=== PATIENT | female | born 1970 | race Caucasian/White ===

== ENCOUNTER 2017-04-11 13:00 | Observation (INO) ==
[~2017-04-11 13:00] MED LIST: Adenosine 90 MG/30 ML MLS IV ONE
[2017-04-11 13:28] LABS: Basophils # 0.1 K/mcL (0.0-0.2); Basophils % 0.7 %; Eosinophils # 0.2 K/mcL (0.0-0.6); Eosinophils % 2.9 %; Hematocrit 44.5 % (35.3-44.9); Hemoglobin 14.4 g/dL (11.5-15.4); Immature Granulocytes % 0.7 % (0-4); Lymphocytes # 2.1 K/mcL (0.6-4.6); Lymphocytes % 26.9 %; Mean Corpuscular HGB Conc 32.4 g/dL (31.6-35.5); Mean Corpuscular Hemoglobin 29.8 pg (28.0-33.3); Mean Corpuscular Volume 91.9 fL (83.0-100.0); Mean Platelet Volume 10.7 fL (9.4-12.4); Monocytes # 0.4 K/mcL (0.0-1.3); Monocytes % 5.4 %; Neutrophils # 4.9 K/mcL (1.6-8.9); Platelet Count 206 K/mcL (140-400); Red Blood Count 4.84 M/mcL (3.82-4.97); Red Cell Distribution Width 12.8 % (11.5-14.5); Segmented Neutrophils % 63.4 %
[2017-04-11 13:52] LABS: BUN/Creatinine Ratio 17 (6-26); Blood Urea Nitrogen 13 mg/dL (6-20); Calcium 9.3 mg/dL (8.6-10.3); Carbon Dioxide 27 mEq/L (23-29); Chloride 105 mEq/L (98-107); Glucose 255 mg/dL (70-105); Osmolality,Calculated 293 (280-300); Potassium 4.1 mEq/L (3.5-5.1); Sodium 137 mEq/L (136-145); eGFR For African Americans > 60 (> 60); eGFR For Non-African Americans > 60 (> 60)
[2017-04-11] MEDS ORDERED: Aspirin 81 MG TAB.CHEW PO STA (14:20)
[2017-04-11] MEDS ORDERED: Nitroglycerin 0.4 MG TAB.SUBL SL PRN ×2 (14:20→15:33)
--- NOTE | 2017-04-11 14:31 | Emergency Department Note ---
Disposition Clinical Impression: ACS (acute coronary syndrome), Acute electrocardiogram changes Disposition: Admitted As Inpatient Condition: Fair Referrals: Clint Price DO [Primary Care Provider] - Forms: ED Satisfaction Letter Time of Disposition: 14:33 General Adult HPI - General Chief complaint: ED Chest Pain Stated complaint: CHEST PAIN Time Seen by Provider: 04/11/17 14:11 Source: patient Nursing Notes Reviewed: Yes Vital Signs Reviewed: Yes - History of Present Illness HPI Narrative: History of present illness: -year-old female history of coronary artery bypass graft surgery 3 years ago presents with chest pain pressure mid mid and substernal waiting to her neck and left upper extremity with dyspnea on exertion some nausea and occasional diaphoresis. She has had no recent cardiac workups. No recent medication changes. She does smoke. Patient is here for further evaluation Pain Scale: 4 - Related Data Allergies Allergy/AdvReac Type Severity Reaction Status Date / Time No Known Allergies Allergy Verified 04/11/17 13:06 All systems ED: reviewed and negative except as stated. Cardiovascular: Reports: chest pain, dyspnea on exertion Respiratory: Reports: dyspnea Past Medical History - Past Medical History Attestation: Yes The following information was validated with the patient. Source: patient Medical history: Reports: coronary artery disease, hyperlipidemia, hypertension Psychiatric history: Reports: no psych history - Social History Smoking Status: Former smoker Alcohol use: Reports: none Drug use: Reports: none Physical Exam - General Limitations: no limitations General appearance: alert, in no apparent distress - Head Head exam: atraumatic, normocephalic - Eye Eye exam: Present: normal appearance, PERRL - ENT ENT exam: normal exam, normal oropharynx - Neck Neck exam: Present: normal inspection, full ROM - Chest Chest inspection: Present: normal inspection, symmetric chest wall rise - Respiratory Respiratory exam: Present: normal lung sounds bilaterally - Cardiovascular Cardiovascular exam: Present: regular rate, normal rhythm - Abdominal Exam Abdominal exam: Present: soft, Non-Tender - Extremities Exam Extremities exam: Present: normal inspection, full ROM - Expanded Lower Extremity Exam Neurovascular/Tendon exam: Present: normal capillary refill Gait: observed and normal - Back Exam Back exam: Present: normal inspection, full ROM - Neurological Exam Neurological exam: Present: alert, oriented X3 - Psychiatric Psychiatric exam: Present: normal mood - Skin Skin exam: Present: warm, dry, intact Course - Reevaluation(s) Reevaluation #1: Patient workup is complete. Initiated at triage. All labs including troponin negative were baseline. Chest x-ray read by radiology process. Patient's 12- lead EKG shows new flipped T waves in V1 through V6 consistent with possible ischemia. Patient's pain is rated at 2 out of 10. Patient was ordered aspirin and nitroglycerin trial. Discussed the case with the hospitalist Dr. Weldon, patient accepted for admission in stable condition. Provided 35 minutes of critical care services for this patient Time: 14:30 Vital Signs Temperature 97.9 F 04/11/17 13:03 Pulse Rate 60 04/11/17 13:03 Respiratory Rate 14 04/11/17 13:03 Blood Pressure 153/84 04/11/17 13:03 O2 Sat by Pulse Oximetry 98 04/11/17 13:03 Temperature 97.9 F 04/11/17 13:03 Pulse Rate 60 04/11/17 13:03 Respiratory Rate 14 04/11/17 13:03 Blood Pressure 153/84 04/11/17 13:03 O2 Sat by Pulse Oximetry 98 04/11/17 13:03 Oxygen Delivery Oxygen Delivery Room Air Medical Decision Making - Medical Records Medical records reviewed: Yes I reviewed the patient's medical records. - Lab Data Lab results reviewed: Yes I reviewed the patient's lab results. Result diagrams: 04/11/17 13:19 04/11/17 13:19 Lab Results 04/11/17 04/11/17 04/11/17 Range/Units 13:19 13:19 13:19 WBC 7.7 (4.3-11.1) K/mcL RBC 4.84 (3.82-4.97) M/mcL Hgb 14.4 (11.5-15.4) g/dL Hct 44.5 (35.3-44.9) % MCV 91.9 (83.0-100.0) fL MCH 29.8 (28.0-33.3) pg MCHC 32.4 (31.6-35.5) g/dL RDW 12.8 (11.5-14.5) % Plt Count 206 (140-400) K/mcL MPV 10.7 (9.4-12.4) fL Immature Gran % 0.7 (0-4) % Seg Neutrophils % 63.4 % Lymphocytes % 26.9 % Monocytes % 5.4 % Eosinophils % 2.9 % Basophils % 0.7 % Neutrophils # 4.9 (1.6-8.9) K/mcL Lymphocytes # 2.1 (0.6-4.6) K/mcL Monocytes # 0.4 (0.0-1.3) K/mcL Eosinophils # 0.2 (0.0-0.6) K/mcL Basophils # 0.1 (0.0-0.2) K/mcL Sodium 137 (136-145) mEq/L Potassium 4.1 (3.5-5.1) mEq/L Chloride 105 (98-107) mEq/L Carbon Dioxide 27 (23-29) mEq/L BUN 13 (6-20) mg/dL Creatinine 0.77 (0.60-1.20) mg/dL Est GFR ( Amer) > 60 (> 60) Est GFR (Non-Af Amer) > 60 (> 60) BUN/Creatinine Ratio 17 (6-26) Glucose 255 H (70-105) mg/dL Calculated Osmolality 293 (280-300) Calcium 9.3 (8.6-10.3) mg/dL Troponin I < 0.03 (< 0.04) ng/mL - Radiology Data Radiology results reviewed: Yes I reviewed the patient's radiology results. - EKG Data EKG #1 EKG attestation: Yes I reviewed and interpreted this EKG. EKG results narrative: Twelve-lead EKG interpreted without Cardiologic assistance shows the following: Sinus bradycardia at 58 bpm, normal NC, QRS, QT corrected. Symmetrically inverted T waves from V1 to V6. These are new changes when compared to prior EKG dated 03/23/2014.
[2017-04-11] MEDS ORDERED: Naloxone 0.4 MG/ML INJ IVP PRN (15:40)
[2017-04-11] MEDS ORDERED: *HR* Heparin 5,000 UNIT/ML VIAL IVP ONE (15:48)
[2017-04-11] MEDS ORDERED: *HR* Heparin 5,000 UNIT/ML VIAL IVP PRN ×2 (15:48)
--- NOTE | 2017-04-11 15:57 | Internal Med History&Physical ---
Date of Encounter: 04/11/17 Time of Encounter: 15:54 Assessment and Plan (1) ACS (acute coronary syndrome) Current visit: Yes Status: Acute ASSESSMENT: - Chest pain due to ACS. Multiple risk factors including HLD HTN and prior CABG. She has had a previous atypical chest pain presentation and subsequent workup found to be negative. However, she continued to have the same symptoms she is reporting now and went for further [place] for further evaluation where an LHC found CAD requiring a CABG PLAN: - cardiac enzymes x 2 q 6 hr - EKG now - ASA - Metoprolol 12.5 mg PO BID - O2 by NC to keep SpO2 greater than 92% - CBCD, BMP in AM - Fasting lipids - Resume Home meds - Heparin 5000 U SQ BID - 2D Echo - Cardiology consult-spoken with Dr. Robertson who is recommended placing patient on a nitroglycerin and heparin drip. He has agreed to see the patient and is planning for a LHC in the morning -Nothing by mouth after midnight (2) HLD (hyperlipidemia) Current visit: Yes Status: Acute Resume atorvastatin, due to frustration and prior history increased dose of atorvastatin to 80 mg given first dose now Qualifiers: Hyperlipidemia type: unspecified Qualified Code(s): E78.5 - Hyperlipidemia , unspecified (3) HTN (hypertension) Current visit: Yes Status: Acute Stable, resume antihypertensives Qualifiers: Hypertension type: essential hypertension Qualified Code(s): I10 - Essential (primary) hypertension (4) Acute electrocardiogram changes Current visit: Yes Status: Acute (5) DVT prophylaxis Current visit: Yes Status: Acute Heparin drip for ACS Internal Medicine - H&P: HPI Chief complaint: chest pain Admitted From: Home Plans for Post Hospital Care: Home History of present illness: Ms. Batista is a 46 year old female with a PMH of CAD, initially, HTN and CABG. She presents today for multiple days of chest pain/pressure as well as intense 8 that is midsternal with radiation to the left shoulder and left arm. Additionally she reports intermittent exertional dyspnea as well as diaphoresis and nausea accompanying the chest pain. She denies any fever, chills, URI symptoms, abdominal pain, weight gain, peripheral edema or extremity pain. She has a history of prior atypical chest pain presentation which had a subsequent negative workup that ultimately resulted in a CABG approximately [address] [facility]. She describes that her current presentation is similar to the presentation when she ended up requiring a CABG. No elevation noted in initial cardiac biomarkers over, she has new T-wave inversions on her EKG in comparison to prior EKG. Past Med Surg Social Fam HX - Past Medical History Medical history: coronary artery disease, hyperlipidemia Psychiatric history: no psych history - Past Surgical History Surgical History: coronary bypass (CABG) - Social History Smoking Status: Former smoker Alcohol use: none Drug use: none - Additional Family History Additional family history: Noncontributory Internal Medicine - H&P: Meds Aspirin [Lo-Dose Aspirin EC] 81 mg PO DAILY 04/11/17 [History] Atorvastatin [Lipitor] 10 mg PO HS 04/11/17 [History] Metoprolol [Lopressor] 12.5 mg PO BID 04/11/17 [History] Nitroglycerin [Nitrostat] 0.4 mg SL Q5M PRN 04/11/17 [History] 3 Allergy/AdvReac Type Severity Reaction Status Date / Time No Known Allergies Allergy Verified 04/11/17 13:06 All Systems PM: A 10-system review of systems was performed and is negative for pertinent findings except as documented above in the HPI. - Constitutional Constitutional: no chills, no fever(s), no night sweats - EENT Eyes: no change in vision, no discharge, no pain, no photophobia Ears: no ear discharge, no ear pain, no tinnitus Nose, mouth and throat: no dysphagia, no nasal discharge, no neck pain, no sore throat - Cardiovascular Cardiovascular ROS IM: as per HPI, no edema, no irregular heart rhythm, no lightheadedness, no orthopnea, no palpitations, no paroxysmal nocturnal dyspnea , no syncope - Respiratory Respiratory: as per HPI - Gastrointestinal Gastrointestinal: no abdominal pain, no diarrhea, no hematemesis, no hematochezia, no melena, no nausea, no vomiting - Genitourinary Genitourinary: no change in urinary stream, no dysuria, no flank pain, no hematuria - Musculoskeletal Musculoskeletal ROS IM: no numbness, no tingling - Integumentary Integumentary IM: no rash, no unusual bruising - Neurological Neurological ROS: no confusion, no convulsions, no focal weakness, no numbness, no tingling, no tremor(s) - Constitutional Vitals: Temp Pulse Resp BP Pulse Ox 97.9 F 60 14 153/84 98 04/11/17 13:03 04/11/17 13:03 04/11/17 13:03 04/11/17 13:03 04/11/17 13:03 General appearance: Present: cooperative, A&O X 3, no acute distress, answers questions appropriately - Head Head exam: Present: atraumatic, normocephalic - Eye Eye exam: Present: PERRL, conjuntiva pink, sclera anicteric Pupils: Present: PERRL - Neck Neck exam general surgery: Present: supple, trachea midline. Absent: lymphadenopathy - Respiratory Respiratory exam: Present: CTAB. Absent: accessory muscle use, rales, rhonchi, wheezes - Cardiovascular Cardiovascular exam: Present: RRR, +S1, +S2. Absent: diastolic murmur, gallop, rubs, systolic murmur - GI/Abdominal GI/Abdominal exam: Present: normal bowel sounds, soft, no peritoneal signs. Absent: distended, tenderness - Extremities Exam Extremities exam: Present: warm, radial pulses palpable and symmetrical. Absent : calf tenderness, cyanotic, pedal edema - Neurological Exam Neurological exam: Present: CN II-XII intact, oriented X3, no focal deficits. Absent: pronater drift, facial droop, speech deficit - Skin Skin exam: Present: dry, intact Internal Med - H&P Results - Labs CBC & Chem 7: 04/11/17 13:19 04/11/17 13:19 - EKG Data -: EKG Interpreted by Myself EKG shows normal: sinus rhythm - EKG Data EKG comments: Sinus rhythm with T-wave inversions in leads V1-V6 04/11/17 15:59 04/11/17 15:59 - Impressions Impressions Chest X-Ray 04/11/17 13:07 IMPRESSION: Stable exam without evidence for acute cardiopulmonary process. D/ / 04/11/2017 13:47:28 Enrique Leung MD / earnold Interpreting Provider: Enrique Leung MD
[2017-04-11] MEDS ORDERED: Heparin 25,000 UNIT/500 ML D5W 25,000 UNIT/500 ML BAG IVC SCH (16:00)
[2017-04-11] MEDS ORDERED: Nitroglycerin 25 MG/250 ML INFUS..BTL IVC SCH (16:00)
[2017-04-11 16:17] LABS: INR 1.1; Prothrombin Time 11.3 Seconds (9.4-12.1)
[2017-04-11 16:30] LABS: Hematocrit 43.5 % (35.3-44.9); Hemoglobin 14.1 g/dL (11.5-15.4); Mean Corpuscular HGB Conc 32.4 g/dL (31.6-35.5); Mean Corpuscular Hemoglobin 29.7 pg (28.0-33.3); Mean Corpuscular Volume 91.6 fL (83.0-100.0); Mean Platelet Volume 10.7 fL (9.4-12.4); Platelet Count 208 K/mcL (140-400); Red Blood Count 4.75 M/mcL (3.82-4.97); Red Cell Distribution Width 12.7 % (11.5-14.5)
[2017-04-11] MEDS: Acetaminophen 325 MG TABLET PO PRN (18:25)
[2017-04-12 00:25] LABS: Basophils # 0.1 K/mcL (0.0-0.2); Basophils % 0.7 %; Eosinophils # 0.3 K/mcL (0.0-0.6); Eosinophils % 3.1 %; Hematocrit 40.5 % (35.3-44.9); Hemoglobin 13.4 g/dL (11.5-15.4); Immature Granulocytes % 0.2 % (0-4); Lymphocytes # 3.8 K/mcL (0.6-4.6); Lymphocytes % 41.8 %; Mean Corpuscular HGB Conc 33.1 g/dL (31.6-35.5); Mean Corpuscular Hemoglobin 29.8 pg (28.0-33.3); Mean Corpuscular Volume 90.2 fL (83.0-100.0); Monocytes # 0.5 K/mcL (0.0-1.3); Neutrophils # 4.5 K/mcL (1.6-8.9); Platelet Count 189 K/mcL (140-400); Red Blood Count 4.49 M/mcL (3.82-4.97); Segmented Neutrophils % 49.2 %
[2017-04-12 00:52] LABS: BUN/Creatinine Ratio 16 (6-26); Blood Urea Nitrogen 12 mg/dL (6-20); Calcium 9.3 mg/dL (8.6-10.3); Carbon Dioxide 24 mEq/L (23-29); Chloride 108 mEq/L (98-107); Chol/HDL Ratio 4.9 (0-4.9); Cholesterol 172 mg/dL (< 200); Glucose 272 mg/dL (70-105); HDL Cholesterol 35 mg/dL (40-59); LDL Cholesterol,Calculated 74 mg/dL (0-99); Osmolality,Calculated 303 (280-300); Potassium 3.5 mEq/L (3.5-5.1); Sodium 142 mEq/L (136-145); Triglycerides 317 mg/dL (< 150); eGFR For African Americans > 60 (> 60); eGFR For Non-African Americans > 60 (> 60)
--- NOTE | 2017-04-12 06:47 | Electrocardiograph Report ---
[facility] [place] [facility] Consult Test Date: 2017-04-11 Pat Name: Claudette Batista Department: [id number] Room: 3B24 Gender: F Manager Administrative Services: : 1970 Requested By: Laura Ramirez Order Number: [id number] Reading MD: Rainer Giang MD Measurements Intervals [place] Rate: 58 P: -21 [place]: 160 QRS: -15 QRSD: 86 T: 8 QT: 416 QTc: 413 Interpretive Statements SINUS BRADYCARDIA ST DEVIATION AND MODERATE T-WAVE ABNORMALITY, CONSIDER ANTERIOR ISCHEMIA Electronically Signed On 04-12-2017 6:46:06 EST by Rainer Giang MD
[2017-04-12] MEDS: Aspirin Enteric Coated 81 MG Tablet PO SCH (08:07)
--- NOTE | 2017-04-12 11:05 | Cardiology Consult Note ---
Date of Encounter: 04/12/17 Time of Encounter: 11:00 Assessment and Plan (1) ACS (acute coronary syndrome) Current Visit: Yes Status: Acute A/R/B of LHC discussed with her including 1% chance of DC//CVA/CABG/JAMI/ bleeding. Stress test also discussed. She wishes to proceed with invasive LHC. Continue heparin drip, aspirin. EF assessment will be completed and cardiac rehab consult if necessary. (2) HTN (hypertension) Current Visit: Yes Status: Acute Continue antiHTN as needed Qualifiers: Hypertension type: essential hypertension Qualified Code(s): I10 - Essential (primary) hypertension Discussion w patient/family: The assessment and plan as outlined above was discussed with the patient and/or family members who expressed understanding and agreement. All questions were answered. Thank you for involving us in the care of your patient. Please call with any questions. History of Present Illness Consult date: 04/12/17 Consult reason: Chest pain History of present illness: Ms. Batista is a 46 year old female with history of CAD sp CABG at [facility] done emergently 3 days after a normal stress test here. Her previous angina was left sided chest discomfort radiating around shoulder into left arm into left neck 10/10. Patient stopped smoking and was doing well until Saturday with intermittent retrosternal pressure radiating left arm with mild dyspnea at times up to 9/10 intensity and lasting up to all day. She cannot state it was exertional in nature. She continues to have some discomfort currently 2/10. Patient adamant about LHC and not stress test. Past Med Surg Social Fam HX - Past Medical History Medical history: coronary artery disease, hyperlipidemia Psychiatric history: no psych history - Past Surgical History Surgical History: coronary bypass (CABG) - Social History Smoking Status: Former smoker Alcohol use: none Drug use: none - Family History Mother Living Status: Age at : 60 Cause of : DC Hx Family Cardiac Disorders: Yes (DC, HTN) Medications and Allergies Aspirin [Lo-Dose Aspirin EC] 81 mg PO DAILY 04/11/17 [History] Atorvastatin [Lipitor] 10 mg PO HS 04/11/17 [History] Metoprolol [Lopressor] 12.5 mg PO BID 04/11/17 [History] Nitroglycerin [Nitrostat] 0.4 mg SL Q5M PRN 04/11/17 [History] 3 Allergy/AdvReac Type Severity Reaction Status Date / Time No Known Allergies Allergy Verified 04/11/17 13:06 All Systems Review: A 10-system review of systems was performed and is negative for pertinent findings except as documented above in the HPI. - Constitutional Constitutional: no chills, no fever(s) - EENT Eyes: no blurred vision, no loss of vision Nose, mouth and throat: no dysphagia, no epistaxis - Cardiovascular Cardiovascular: chest pain at rest, chest pain with exertion - Respiratory Respiratory: no hemoptysis, no wheezing - Gastrointestinal Gastrointestinal: no hematemesis, no hematochezia - Genitourinary Genitourinary: no hematuria, no nocturia - Musculoskeletal Musculoskeletal: no abnormal gait, no myalgias - Integumentary Integumentary: no rash, no unusual bruising - Neurological Neurological: no abnormal speech, no loss of vision - Psychiatric Psychiatric: no anxiety, no depression - Hematological/Lymphatic Hematologic/Lymphatic: no easy bleeding, no easy bruising Physical Examination Vital Signs, Last 4 Hours Temp Pulse Resp BP Pulse Ox 04/12/17 10:50 97.4 F L 55 16 113/76 95 General: Conversant HEENT: Atraumatic Neck: No JVD Cardiac: Reg Rate and Rhythm Lungs: Other (bibasilar crackles) Neuro: Alert and responsive Abdomen: Soft Skin: No rashes noted on visualized skin Musculoskeletal: No Chest Wall Tenderness Extremities: No Edema Results 04/12/17 00:11 04/12/17 00:11 Lab Results 04/11/17 04/11/17 04/11/17 16:03 16:03 16:03 WBC 8.1 Hgb 14.1 Hct 43.5 Plt Count 208 INR 1.1 APTT 31.9 Sodium Potassium Chloride Carbon Dioxide BUN Creatinine Glucose Calcium Troponin I 04/11/17 04/11/17 04/12/17 18:20 21:44 00:11 WBC Hgb Hct Plt Count INR APTT 78.6 H D Sodium Potassium Chloride Carbon Dioxide BUN Creatinine Glucose Calcium Troponin I < 0.03 < 0.03 04/12/17 04/12/17 04/12/17 00:11 00:11 05:03 WBC 9.2 Hgb 13.4 Hct 40.5 Plt Count 189 INR APTT 56.4 H Sodium 142 Potassium 3.5 Chloride 108 H Carbon Dioxide 24 BUN 12 Creatinine 0.77 Glucose 272 H Calcium 9.3 Troponin I - EKG Interpretation EKG results cardiology: personally reviewed (SR anterior ischemia) Consult Discharge Plan - Plan Referrals: Clint Price DO [Primary Care Provider] -
[2017-04-12] MEDS ORDERED: Nitroglycerin 1,000 MCG/10 ML VIAL IV ONE (13:27)
[2017-04-12] MEDS ORDERED: *HR* Heparin 10,000 UNIT/10 ML VIAL ONE (13:27)
[2017-04-12] MEDS ORDERED: 0.9 % Sodium Chloride 1,000 ML ONE ×2 (13:27→13:46)
[2017-04-12] MEDS ORDERED: Heparin 1,000 UNITS/500 mL 500 ML ONE (13:27)
[2017-04-12] MEDS ORDERED: ISOVUE-370 200 ML INFUS..BTL IV ONE ×2 (13:27→14:09)
--- NOTE | 2017-04-12 13:34 | Pre-Sedation Evaluation ---
Pre-sedation evaluation - Pre-sedation checklist Date of procedure: 04/12/17 Procedure: heart cath Recent Vitals: Last Vital Signs Temp 97.4 F L 04/12/17 10:50 Pulse 55 04/12/17 10:50 Resp 16 04/12/17 10:50 BP 113/76 04/12/17 10:50 Pulse Ox 95 04/12/17 10:50 H&P (including ROS) documented in medical record: Yes Previous reaction to sedatives/anesthetics: No Dietary Status: NPO after Midnight Airway Assessment: Patient can open mouth completely, TMJ function normal, Micrognathia (under-bite, receding chin) absent, Neck with adequate range of motion Dentition: No loose teeth or bridges Possible difficult airway: No ASA Classification *see protocol: CLASS II-Mild systemic disease Plan of Care: Pt appropriate candidate for procedure/moderate/conscious sedation , Risks/benefits of procedure/sedation discussed w/ patient/family
[2017-04-12] MEDS ORDERED: *HR* Midazolam HCl 2 MG/2 ML VIAL ONE (13:45)
[2017-04-12] MEDS ORDERED: *HR* FentaNYL (PF) 100 MCG/2 ML VIAL ONE (13:46)
--- NOTE | 2017-04-12 15:01 | Invasive Diagnostic Lab Proc ---
Name: Claudette Batista Date of Study: 04/12/2017 Date: 1970 Ht: 63.0in Medical Record#: [id number] Age: 46 Wt: 198.42lb Gender: Female BSA: 1.93 Order #: [id number] BMI: 35.16 Physicians Procedure Physician: Caron Dolan MD, FACC Referring MD: Clint Price DO Referring MD: Staff Name Position Time In [place] Janice RN Monitor 01:42 PM Brianne Ritchie RN Aids Nurse 01:42 PM Shilpa Landa RT (R) Scrub 01:42 PM Indications Indication Unstable Angina Procedures Performed Procedure L HRT ART/GRFT ANGIO IV Doppler BLD Flow 1st Vessel Pre-Procedure Checklist Informed consent is complete signed and on chart. H&P is on chart. ID band is on and ID verified with patient. Patient NPO for procedure The procedure was described for the patient and questions were answered. Blood Pressure: 137/68 ECG is on chart. Rhythm: NSR Plan of Care Patient will tolerate the procedure without complications. Adequate level of comfort will be maintained. Hemodynamics will remain stable Patient will recover from procedure without complications. Respiratory function will be maintained. Cardiac rhythm will remain stable. Patient temperature will be maintained. Patient and/or family have verbalized understanding of the procedure. Patient Education Chief Complaint/Reason for Test: Cardiac Cath Developmental Category: Adult (18-64 years) Developmentally Appropriate for Age: Yes Learning Barriers: None Education Needs: Procedure Education Method: Verbal Information Taught: Cardiac Cath Educational Evaluation: Able to repeat information Intravenous Access Time IV Size Location DC'd Fluid/Drip Rate Units RN 01:51 PM 20g 1 1/4" Patent On Arrival Lt Arm 0.9NaCl 25 ml/hr Brianne Ritchie RN 01:52 PM 20g 1 1/4" Patent On Arrival Rt Antecubital Allergies NKA Vital Signs Time BP (mmHg) HR (bpm) O2 Sat. RR (bpm) LOC 01:43 PM 137 / 68 59 100 % 19 5 = Fully awake and oriented or at pre-proc level 01:55 PM / % 5 = Fully awake and oriented or at pre-proc level 01:55 PM / % 4 = Oriented but drowsy 02:10 PM / % 4 = Oriented but drowsy 01:50 PM 137 / 68 59 100 % 19 01:55 PM 99 / 58 62 95 % 19 02:00 PM 107 / 60 65 98 % 14 02:05 PM 122 / 60 66 98 % 15 02:10 PM 122 / 60 66 99 % 16 02:15 PM 128 / 69 73 99 % 14 02:20 PM 130 / 63 72 99 % 14 02:25 PM 121 / 63 69 99 % 12 02:30 PM 128 / 65 71 100 % 20 02:35 PM 125 / 63 72 98 % 24 02:26 PM / % 5 = Fully awake and oriented or at pre-proc level Procedural Medications Time Medication Dose Units Method Given By 01:54 PM Oxygen 2 L/min nasal cannula Brianne Ritchie RN 01:54 PM Versed 2 mg Intravenous Brianne Ritchie RN 01:54 PM Fentanyl 50 mcg Intravenous Brianne Ritchie RN 02:00 PM Lidocaine 2% 18 ml Subcutaneous Caron Dolan MD, FACC 02:04 PM Benadryl 25 mg Intravenous Brianne Ritchie RN 02:24 PM Angiomax 0.75mg/kg bolus: 13.5 ml Intravenous Brianne Ritchie RN 02:24 PM Angiomax 1.75mg/kg/hr: 31.5 ml Intravenous Brianne Ritchie RN 02:28 PM Adenosine 756 ml/hr Intravenous Brianne Ritchie RN ASA Classification: CLASS II- Mild systemic disease (i.e. well-controlled diabetes, hypertension, asthma, cigarette smoking) Cyndi Score Preprocedure Postprocedure Activity 2- Moves 4 extremities sustained head lift Activity 2- Moves 4 extremities sustained head lift Circulation 2- SBP +/= 20 points of pre-anesthetic level Circulation 2- SBP +/= 20 points of pre-anesthetic level Consciousness 2- Awake and alert oriented x 3 Consciousness 2- Awake and alert oriented x 3 O2 Saturation 2- Able to maintain O2 satruation of 92% on room air O2 Saturation 2- Able to maintain O2 satruation of 92% on room air Respiratory 2- Able to deep breathe and cough well Respiratory 2- Able to deep breathe and cough well Total Score 10 Total Score 10 Contrast Agent: Isovue Diagnostic Contrast: 115 ml Total Contrast: 115 ml Fluoro Dose: 376 mGy Activated Clotting Time Time Seconds to Clot 02:21 PM 151 Procedure Log Time Note Enter By 01:38 PM CathStat 01:38 PM Pt arrived to [employer] 2 at 13:38 jayleen 01:42 PM Janice Weller RN Position: Monitor Time in: : csmith 01:42 PM Brianne Ritchie RN Position: Aids Nurse Time in: : csmith 01:42 PM Shilpa Landa (R) Position: Scrub Time in: 13:42 csmith 01:42 PM Patient charges- Angio tray pack, Navilyst 3mm J, Pulse Oximetry and ACIST tubing and transducer csmith :43 PM Physician arrived :43 csmith :43 PM ASA Class CLASS II- Mild systemic disease (i.e. well-controlled diabetes, hypertension, asthma, cigarette smoking) csmith :43 PM Meet and greet completed csmith : PM Sign in performed according to hospital policy. csmith :43 PM Procedure start : csmith :43 PM Case Start :43 PM Time: :43 Patient comfortable and pain free: Yes csmith :43 PM Time: :43LOC: 5 = Fully awake and oriented or at pre-proc level csmith :43 PM Time: 13:43 Oxygen on at 2 L/min per nasal cannula by Brianne Ritchie RN csmith 01:48 PM Vitals capture started with the following parameters, Patient=Adult, Interval=5 min, Initial Lfbuxykf=038 mmHg, Deflation Rate=5 mmHg, Cuff placed on Right Arm 01:49 PM Recorded ECG: HR=62 Condition=Condition 1 01:50 PM Vitals capture started with the following parameters, Patient=Adult, Interval=5 min, Initial Xtstiyqo=322 mmHg, Deflation Rate=5 mmHg, Cuff placed on Right Arm 01:50 PM HR=59 bpm, OWKP=698/68 mmhg, BrL3=356.0 %, Resp=19 B/min, Comment=sb 01:53 PM Case Delayed No lparsley 01:54 PM Hair removed from procedure site in procedure lab using clippers. Bilateral groin prepped with Chloraprep by Shilpa Landa (R), then patient was draped. Skin intact. trey :54 PM Time: 13:54 Versed 2 mg Intravenous Given by Brianne Ritchie RN 01:55 PM Time: 13:54 Fentanyl 50 mcg Intravenous Given by Brianne Ritchie RN :55 PM Time: 13:55 Patient comfortable and pain free: Yes [facility] : PM Time: 13:55LOC: 5 = Fully awake and oriented or at pre-proc level [facility] :55 PM Clinical Presentation: Unstable angina [facility] 01:55 PM HR=62 bpm, NIBP=99/58 mmhg, SpO2=95.0 %, Resp=19 B/min, Comment=sr 01:57 PM Time out performed according to hospital policy [facility] 02:00 PM Time: 14:00 18 ml Lidocaine 2% to right groin Subcutaneous Given by Caron Dolan MD, [facility] 02:00 PM HR=65 bpm, ALDQ=223/60 mmhg, SpO2=98.0 %, Resp=14 B/min, Comment=sr 02:01 PM Unsuccessful access attempt # 1 into the right Femoral artery. Manual pressure applied to achieve hemostasis.. [facility] 02:02 PM Access obtained by percutaneous puncture. 5Fr 10cm Terumo [place] sheath placed in right Femoral artery. [id number] lparsley 02:02 PM 5Fr FL 4 catheter inserted over the wire [facility] 02:02 PM 0.035 145cm Navilyst 3mmJ wire [id number] lparsley 02:02 PM Pressure channel 1 zeroed. 02:04 PM Time: 14:04 Benadryl 25 mg Intravenous Given by Brianne Ritchie RN lparslavinia 02:04 PM Catheter [facility] 02:05 PM 5Fr FL3.5 catheter inserted over the wire [id number] lparsley 02:05 PM LCA angiography performed in multiple views. [facility] 02:05 PM HR=66 bpm, YOJE=851/60 mmhg, SpO2=98.0 %, Resp=15 B/min, Comment=sr 02:06 PM Recorded Pressure: Ao, HR=69, Condition=Condition 1 (Aorta) Ao 111/63/83 02:07 PM Catheter removed lparsley 02:07 PM 5Fr FR 4 catheter inserted over the wire [facility] lparsley 02:08 PM RCA angiography performed in multiple views. lparsley 02:08 PM Recorded Pressure: Ao, HR=67, Condition=Condition 1 (Aorta) Ao 128/78/99 02:09 PM SVG to RPDA angio performed in multiple views. Occluded lparsley 02:09 PM Recorded Pressure: Ao, HR=67, Condition=Condition 1 (Aorta) Ao 121/72/94 02:10 PM Time: 13:55LOC: 4 = Oriented but drowsy lparsley 02:10 PM Time: 13:55 Patient comfortable and pain free: Yes lparsley 02:10 PM SVG to OM angio performed in multiple views. Occluded lparsley 02:10 PM HR=66 bpm, CXBK=910/60 mmhg, SpO2=99.0 %, Resp=16 B/min, Comment=sr 02:11 PM Catheter removed lparsley 02:11 PM 5Fr IM catheter inserted over the wire [id number] lparsley 02:12 PM Left MARLEN to the LAD angio performed in multiple views. Occluded lparsley 02:12 PM Catheter removed lparsley 02:13 PM 5Fr Pigtail catheter inserted over the wire DNC lparsley 02:13 PM Pressure channel 1 zero failed. 02:13 PM Pressure channel 1 zeroed. 02:13 PM Recorded Pressure: LV, HR=74, Condition=Condition 1 (Left Ventricle) LV 117/6/6 02:14 PM Catheter selectively placed in left ventricle lparsley 02:14 PM Bolus angiogram of left Ventricle complete: 8 ml/sec for a total of 24 mls lparsley 02:14 PM Recorded Pressure: LV, Ao, HR=76, Condition=Condition 1 (Left Ventricle) LV 118/14/18, (Aorta) Ao 107/65/85 02:14 PM Catheter removed lparsley 02:15 PM HR=73 bpm, LBPF=745/69 mmhg, SpO2=99.0 %, Resp=14 B/min, Comment=sb 02:20 PM PCI lesion in Mid RCA. Pre Stenosis: 60 Pre YESSY Flow: 3: Complete and Brisk Flow/Perfusion lparsley 02:20 PM PCI lesion in Mid RCA. lparsley 02:20 PM Sheath exchanged for a 6 Fr 11 cm Cordis Geri sheath [id number] lparsley 02:20 PM Inflation device was opened. lparsley 02:20 PM 6Fr JR 4 [place] Bright-Tip guide catheter was used to cannulate the PCI vessel successfully. reused? No lparsley 02:20 PM Recorded Pressure: Ao, HR=72, Condition=Condition 1 (Aorta) Ao 131/62/89 02:20 PM HR=72 bpm, DZZM=343/63 mmhg, SpO2=99.0 %, Resp=14 B/min, Comment=sr 02:21 PM .014 Prow[place] 180cm guide wire across target lesion- successful. reused? No lparsley 02:21 PM At 14:21 the ACT was 151 seconds. [email or web address] 02:24 PM Time: 14:24 Angiomax 0.75mg/kg bolus: 13.5 ml Intravenous Given by Brianne Ritchie RN Coughlin pump lparslavinia 02:25 PM Time: 14:24 Angiomax 1.75mg/kg/hr: 31.5 ml Intravenous Given by Brianne Ritchie RN Coughlin pump lparslavinia 02: PM HR=69 bpm, XVTY=410/63 mmhg, SpO2=99.0 %, Resp=12 B/min, Comment=sr 02:26 PM Time: 14:10 Patient comfortable and pain free: Yes lpasteph : PM Time: 14:10LOC: 4 = Oriented but drowsy lparslavinia 02:27 PM Pressure channel 1 zeroed. 02:28 PM Asist FFR Catheter advanced to target lesion. lparslavinia 02:29 PM Time: 14:28 Adenosine 756 ml/hr administered Intravenous by Brianne Ritchie RN lparslavinia 02:29 PM Recorded Pressure: Ao, HR=69, Condition=Condition 1 (Aorta) Ao 124/72/94 02:30 PM HR=71 bpm, KVWP=787/65 mmhg, UfL5=167.0 %, Resp=20 B/min, Comment=sr 02:31 PM Adenosine stopped at this time lparsley 02:32 PM FFR Measurement: 0.88 lparsley 02:33 PM Angiomax stopped at this time lparsley 02:33 PM Guide wire removed intact. lparsley 02:34 PM Guide catheter removed intact. lparslavinia 02:35 PM Procedure completed at 14:35 lparsley 02:35 PM HR=72 bpm, OQPX=227/63 mmhg, SpO2=98.0 %, Resp=24 B/min, Comment=sr 02:35 PM Sign out completed: Radiation Dose 376.38 mGy Fluoro Time: 6.5 Isovue 370 - 200ml contrast 115 ml given by Caron Dolan MD, [facility]. Complications: NoneCardiac Rehab Consult needed: NoConfirmed administered medications: Yes lparsley 02:36 PM Isovue 370 - 200ml,1 Bottle(s) used. lparsley 02:36 PM Arterial sheath pulled, Mynx closure device used and was Successful [id number] S/N. lparsley 02:36 PM Estimated Blood Loss: minimal lparsley 02:36 PM Post ECG NSR lparsley 02:36 PM Post Blood Pressure 125/63 lparsley 02:37 PM 14:37 Post Pulses Bilateral DP & PT 1+ lparsley 02:38 PM Information taught Cardiac Cath and Mynx lparsley 02:38 PM Education needs Procedure, Plan of Care, and Safe & Effective Use of Medications lparsley 02:38 PM Learning barriers :None lparsley 02:38 PM Education Methods Verbal lparsley 02:38 PM Education evaluation Able to repeat information lparsley 02:38 PM Site status No bleeding/hematoma - Rt Groin as reported by Shilpa Landa RT (R) at 14:38 lparsley 02:38 PM Opsite applied lparsley 02:41 PM Time: 14:26 Patient comfortable and pain free: Yes lparsley 02:41 PM Time: 14:26LOC: 5 = Fully awake and oriented or at pre-proc level lparsley 02:41 PM Coronary Dominance: right lparsley 02:42 PM Lesion found in Proximal RCA. Pre Stenosis: 30 Pre YESSY Flow: 3: Complete and Brisk Flow/Perfusion lparsley 02:42 PM Lesion found in Distal RCA. Pre Stenosis: 20 Pre YESSY Flow: 3: Complete and Brisk Flow/Perfusion lparsley 02:43 PM Lesion found in LMCA. Pre Stenosis: 30 Pre YESSY Flow: 3: Complete and Brisk Flow/Perfusion lparsley 02:43 PM Lesion found in Proximal LAD. Pre Stenosis: 30 Pre YESSY Flow: 3: Complete and Brisk Flow/Perfusion lparsley 02:43 PM Lesion found in Proximal Circumflex. Pre Stenosis: 30 Pre YESSY Flow: 3: Complete and Brisk Flow/Perfusion lparsley 02:43 PM Left Main Coronary Artery with 30% stenosis lparsley 02:43 PM Proximal Left Anterior Descending Coronary Artery with 30% stenosis. If graft is supplying this territory, 100 % stenosis. lparsley 02:44 PM Circumflex, Obtuse Marginal, Left Posterior Descending, and Left Posterolateral Coronary Arteries with 30 % stenosis. If graft is supplying this area, 100 % stenosis lparsley 02:44 PM Right Coronary, Right Posterior Descending Arteries with Right Posterolateral and Acute Marginal branches with 60 % stenosis. If graft is supplying this area, 100 % stenosis lparsley 02:45 PM Report given to Rubi VOGT Pt taken to 3B Room #24. 14:44 lparsley 02:47 PM Delay to floor No lparsley 02:47 PM Patient out of room: 14:47 lparsley 02:48 PM Family placed in consult room. lparsley 02:48 PM Complications: None lparsley 02:48 PM Fluoro Time: 6.5 lparsley 02:48 PM Isovue 370 - 200ml contrast 115 ml given by Caron Dolan MD, [facility]. lparsley 02:48 PM Radiation D[facility] 376.38 [facility] Complications Complication None Hemodynamics Pressures Site Systolic/A Wave Diastolic/V Wave Mean AO 111 63 83 AO 128 78 99 AO 121 72 94 LV 117 6 6 LV 118 14 18 AO 107 65 85 AO 131 62 89 AO 124 72 94 Post Procedure Information Blood Pressure: 125/63 mmHg Rhythm: NSR Post procedural instructions were given Closure Device Time Device Success/Fail 04/12/2017 2:48:00 PM MynxGrip Successful Site Checks Time Location Status Staff Sheath In? Note 02:38 PM Rt Groin No bleeding/hematoma Shilpa Landa RT (R) Pulses Time Site Pre-Procedure Post-Procedure Note 04/12/2017 1:52:00 PM Bilateral DP & PT 1+ 04/12/2017 1:52:00 PM Bilateral radial 2+ 2:37:00 PM Bilateral DP & PT 1+ Updated by Janice Weller RN on 04/12/2017 2:56:54 PM electronically signed on 04/12/2017 2:57:24 PM with status of Final
[2017-04-12] MEDS: Diltiazem CD (24hr) 120 MG CAPSULE PO SCH (16:54)
[2017-04-12] MEDS: Isosorbide MONOnitrate (24 HR) 30 MG TAB.ER.24H PO SCH (16:54)
--- NOTE | 2017-04-12 17:06 | Event Note ---
Date of Encounter: 04/12/17 Time of Encounter: 17:03 - Cardiology Event Note LHC completed. No intervention was completed. Mild to moderate CAD seen. No patent bypass grafts. Start norvasc for possible coronary vasospasms. Dr. Ortiz discussed with family. Out-pt f/u will be scheduled. Cardiology will sign off. Please call with questions.
[2017-04-12] MEDS ORDERED: amLODIPine 5 MG TABLET PO SCH (17:15)
--- NOTE | 2017-04-12 20:18 | Internal Med Progress Note ---
Date of Encounter: 04/12/17 Time of Encounter: 10:45 - Assessment and plan (1) CAD (coronary artery disease) Current Visit: Yes Status: Acute Assessment and plan: hx CABGX3. Presented with chest pain. Heparin and nitro gtt started on arrival. 04/12/2017 LHC showed mild to moderate CAD seen, so patent bypass grafts. Cardiology suspects possible coronary vasospasms. Norvasc started. Patient and family did not want to d/c on 04/12. Cont to monitor on tele overnight. Follow-up with Cardiology outpatient. Cont ASA, CCB, Statin, nitrate Qualifiers: Coronary Disease-Associated Artery/Lesion type: [place] artery [place] vs. transplanted heart: [place] heart Associated angina: without angina Qualified Code(s): I25.10 - Atherosclerotic heart disease of [place] coronary artery without angina pectoris (2) HTN (hypertension) Current Visit: Yes Status: Acute Assessment and plan: per hx. BP controlled. Cont home BP medication. Monitor BP and titrate PRN Qualifiers: Hypertension type: essential hypertension Qualified Code(s): I10 - Essential (primary) hypertension (3) DVT prophylaxis Current Visit: Yes Status: Acute Assessment and plan: heparin - Subjective Interval history: Seen and examined at bedside, patient is new to me. Information obtained from chart review and patient report. Says she feels better this morning, no further chest pain or SOB. She is aware of plan for LHC later this afternoon - Constitutional Vitals: Temp Pulse Resp BP Pulse Ox 99.2 F 97 16 129/76 98 04/12/17 19:11 04/12/17 19:11 04/12/17 19:11 04/12/17 19:11 04/12/17 19:11 General appearance: Present: cooperative, A&O X 3, no acute distress, answers questions appropriately - Head Head exam: Present: atraumatic, normocephalic - Eye Eye exam: Present: PERRL, conjuntiva pink, sclera anicteric Pupils: Present: PERRL - Neck Neck exam general surgery: Present: supple, trachea midline. Absent: lymphadenopathy - Respiratory Respiratory exam: Present: CTAB. Absent: accessory muscle use, rales, rhonchi, wheezes - Cardiovascular Cardiovascular exam: Present: RRR, +S1, +S2. Absent: diastolic murmur, gallop, rubs, systolic murmur - GI/Abdominal GI/Abdominal exam: Present: normal bowel sounds, soft, no peritoneal signs. Absent: distended, tenderness - Extremities Exam Extremities exam: Present: warm, radial pulses palpable and symmetrical. Absent : calf tenderness, cyanotic, pedal edema - Neurological Exam Neurological exam: Present: CN II-XII intact, oriented X3, no focal deficits. Absent: pronater drift, facial droop, speech deficit - Skin Skin exam: Present: dry, intact Internal Medicine: Result - Labs CBC & Chem 7: 04/12/17 00:11 04/12/17 00:11 Labs: Short CBC 04/12/17 Range/Units 00:11 WBC 9.2 (4.3-11.1) K/mcL Hgb 13.4 (11.5-15.4) g/dL Hct 40.5 (35.3-44.9) % Plt Count 189 (140-400) K/mcL Neutrophils # 4.5 (1.6-8.9) K/mcL BMP 04/12/17 00:11 Sodium 142 Potassium 3.5 Chloride 108 H Carbon Dioxide 24 BUN 12 Creatinine 0.77 Glucose 272 H Calcium 9.3 Cardiac Enzymes 04/12/17 Range/Units 00:11 Troponin I < 0.03 (< 0.04) ng/mL - ABG Interpretation ABG results: PT/INR, D-dimer PT 11.3 Seconds (9.4-12.1) 04/11/17 16:03 - Impressions Impressions Echocardiogram 04/11/17 15:38 Impressions: Technically sub-optimal. Patient reportedly would not cooperate with examination. LVEF 60%. Normal LV chamber size, wall thickness and function. Mild left ventricular diastolic dysfunction. Normal right ventricular structure and function. Atypical septal motion consistent with post-operative status. No significant valvular dysfunction. No evidence of pulmonary hypertension. Left Ventricular Wall Motion: Rest Echo Findings All wall segments showed normal motion. Findings: Study Quality * Technically sub-optimal. Patient reportedly would not cooperate with examination. ECG Findings * Normal sinus rhythm. Left Ventricle * LVEF 60%. * Normal LV chamber size, wall thickness and function. * Mild left ventricular diastolic dysfunction. * Atypical septal motion consistent with post-operative status. Right Ventricle * Normal right ventricular structure and function. Left Atrium * Normal left atrial size. Right Atrium * Normal right atrial size. Interatrial Septum * Interatrial septum not well evaluated. Aortic Valve * Aortic valve not well visualized. * No aortic regurgitation. * No aortic stenosis. Mitral Valve * Normal mitral valve structure and function. * No mitral stenosis. * No mitral regurgitation. Tricuspid Valve * Normal tricuspid valve structure and function. * Trace tricuspid regurgitation. * No evidence of pulmonary hypertension. Pulmonic Valve * Pulmonic valve is not well visualized. * No pulmonic regurgitation. Aorta * Normally sized aortic root. Pericardium * The pericardium appears normal. IVC * The IVC is not well evaluated. Pulmonary Artery * Normal visualized portions of the main pulmonary artery. Consult Discharge Plan - Plan Referrals: Clint Price DO [Primary Care Provider] -
[2017-04-12] MEDS: Acetaminophen 325 MG TABLET PO PRN (21:27)
[2017-04-12] MEDS: *HR* Heparin 5,000 UNIT/ML VIAL SQ SCH (21:30)
[2017-04-13 02:34] LABS: Hemoglobin A1C 7.4 %
[2017-04-13] MEDS: *HR* Heparin 5,000 UNIT/ML VIAL SQ SCH (05:19)
[2017-04-13] MEDS: Isosorbide MONOnitrate (24 HR) 30 MG TAB.ER.24H PO SCH (08:37)
[2017-04-13] MEDS: Aspirin Enteric Coated 81 MG Tablet PO SCH (08:37)
[2017-04-13] MEDS: Diltiazem CD (24hr) 120 MG CAPSULE PO SCH (08:38)
[2017-04-13] MEDS: Acetaminophen 325 MG TABLET PO PRN (08:45)
[2017-04-13 11:20] VITALS: BP 104/67
--- NOTE | 2017-04-13 11:52 | Discharge Summary ---
Date of Encounter: 04/13/17 Time of Encounter: 11:57 - Discharge Diagnosis (1) CAD (coronary artery disease) Priority: Primary Status: Acute Comments: hx CABG X 3 at [facility]. Presented with chest pain; heparin and nitro gtt started on arrival. EKG with T wave inversion. 04/12/2017 [facility] showed mild to moderate non- obstructive CAD, no patent bypass grafts. Cardiology suspects possible coronary vasospasms; diltiazem started. Follow-up with Cardiology outpatient. Cont ASA, CCB, Statin. Nitrate stopped with soft/borderline BP. Blood pressure can be reassessed at cardiology follow-up. Qualifiers: Coronary Disease-Associated Artery/Lesion type: [place] artery [place] vs. transplanted heart: [place] heart Associated angina: without angina Qualified Code(s): I25.10 - Atherosclerotic heart disease of [place] coronary artery without angina pectoris (2) Hyperglycemia Priority: Primary Status: Acute Comments: Hgb A1c 7.4%. Hold on initiating oral hypoglycemics at this time; patient will follow-up with PCP. Dietary and lifestyle modifications recommended. - Discharge Medications Prescriptions: Diltiazem CD (24hr) [Cardizem CD] 120 mg PO DAILY #30 cap.er.24h Home Medications: Aspirin [Lo-Dose Aspirin EC] 81 mg PO DAILY 04/11/17 [History] Atorvastatin [Lipitor] 10 mg PO HS 04/11/17 [History] Metoprolol [Lopressor] 12.5 mg PO BID 04/11/17 [History] Nitroglycerin [Nitrostat] 0.4 mg SL Q5M PRN 04/11/17 [History] Diltiazem CD (24hr) [Cardizem CD] 120 mg PO DAILY #30 cap.er.24h 04/13/17 [Rx] Allergies/Adverse Reactions: 3 Allergy/AdvReac Type Severity Reaction Status Date / Time No Known Allergies Allergy Verified 04/11/17 13:06 Procedures/tests Complete & Pending: Procedures Performed prior 72 hours Category Date Time Status Left Heart Cath [CL Cardiac Catheterization] [CL] Milk [employer]or 04/12/17 11:00 Completed Routine EV echocardiogram Routine Y 04/11/17 15:38 Completed Date of admission: 04/11/17 14:33 Primary care physician: Clint Price DO Consults: 04/12/17 13:02 Consult to Cardiology [CONS] Routine Comment: Consulting Provider: Cardiology Bridget Reason for Consult: chest pain Time Notified: 13:03 Call Completed: Yes Discharging clinician: Diana Stephenson Anticipated date of discharge: 04/13/17 - Patient Status Disposition: Home, Self-Care Condition: Good Functional capacity at discharge: independent ambulation Overall status at discharge: patient is back to baseline - Discharge Instructions Instructions: Coronary Artery Disease (DC), Diltiazem (By mouth), Diabetes Mellitus Type 2 in Adults (DC) Follow Up With: Iam Cano DO [Partnered Physician] - (A follow-up on asthma scheduled for you with [facility]. Please call the office if you have not heard from them within 2 weeks) Clint Price DO [Primary Care Provider] - (Please call your primary care physician and make an appointment within 1-2 weeks) Additional Instructions: You're Hgb A1c measurement of your blood glucose over the last 3 months. Your Hgb A1c was 7.4% which equals to a average daily blood glucose of 186. Please call your primary care physician within 24 hours or the next business day to schedule a follow-up appointment. Recommend eating a low sugar, low fat diet. - Diet and Activity Activity: increase activity as tolerated Diet: diabetic diet, low fat, low cholesterol Interval History: Seen and examined at bedside. Patient says she feels better like to discharge home today. No further chest pain. She is aware of elevated Hgb 1 A1c. Advised her to follow-up with PCP within one week as she may need to be started on oral hypoglycemics. She verbalizes understanding. Hospital course: See assessment and plan for hospital course - Time Spent with Patient Total time spent providing and/or coordinating discharge services: - Constitutional Vitals: Temp Pulse Resp BP Pulse Ox 97.6 F 52 18 104/67 96 04/13/17 11:19 04/13/17 11:19 04/13/17 11:19 04/13/17 11:19 04/13/17 11:19 General appearance: Present: cooperative, A&O X 3, no acute distress, answers questions appropriately - Head Head exam: Present: atraumatic, normocephalic - Eye Eye exam: Present: PERRL, conjuntiva pink, sclera anicteric Pupils: Present: PERRL - Neck Neck exam general surgery: Present: supple, trachea midline. Absent: lymphadenopathy - Respiratory Respiratory exam: Present: CTAB. Absent: accessory muscle use, rales, rhonchi, wheezes - Cardiovascular Cardiovascular exam: Present: RRR, +S1, +S2. Absent: diastolic murmur, gallop, rubs, systolic murmur - GI/Abdominal GI/Abdominal exam: Present: normal bowel sounds, soft, no peritoneal signs. Absent: distended, tenderness - Extremities Exam Extremities exam: Present: warm, radial pulses palpable and symmetrical. Absent : calf tenderness, cyanotic, pedal edema - Neurological Exam Neurological exam: Present: CN II-XII intact, oriented X3, no focal deficits. Absent: pronater drift, facial droop, speech deficit - Skin Skin exam: Present: dry, intact
== END 2017-04-13 12:44 | disposition home or self-care (01) ==
LOC: 3BNU 13:00 → EMEROO 13:00 → 3BNU 15:05
PROVIDERS: ADMIT Internal Medicine; ATTEND Registered Nurse